=== PATIENT | female | born 1975 | race Caucasian/White ===

== ENCOUNTER 2020-05-19 19:55 | Outpatient (REF) | payer BC, SELFPAY ==
[2020-05-19 21:30] LABS: Calculated LDL 183 mg/dL (<100); Cholesterol 259 mg/dL (<200); HDL Cholesterol 61 mg/dL (40-60); Triglyceride 78 mg/dL (<150)
[2020-05-19 21:31] LABS: Hemoglobin A1C 5.1 % (<5.7)
== END 2020-05-19 20:15 ==
LOC: NCHCN 19:55
PROVIDERS: PCP Nurse Practitioner Family; Visit Provider Nurse Practitioner Family
DX: Z00.00 Encounter for general adult medical examination without abnormal findings (principal); E66.9 Obesity, unspecified; Z13.220 Encounter for screening for lipoid disorders; Z13.1 Encounter for screening for diabetes mellitus
CPT/HCPCS: 80061; 83036

== ENCOUNTER 2021-09-07 11:40 | Outpatient (REF) | payer BC, SELFPAY ==
--- NOTE | 2021-09-07 11:00 | PAPFT_PTH ---
PATIENT: Maryellen Perkins LOC: [facility] U#:[id number] AGE/SX: 45/F ROOM: RE09/07/[address]: Agustina Manuel : 1975 BED: DIS: 09/08/2021 SPEC #: [id number] RECD: 09/08/21 12:55 STATUS: KOJO RESandip #: [id number] TONY: 09/07/21 11:[address]: Agustina Manuel DEPT: [facility] Cytology RECD BY: Aleena Tompkins ENTERED: 09/08/21 12:56 SP TYPE: PAPFT OTHR DR: Cathleen Mares Tissues: 1 - CX/ENDOCX FOR PAP SMEARS Procedures: PAP THIN PREP/[facility] Screening HPV DNA PROBE Comments: [id number]
== END 2021-09-08 11:36 | disposition home or self-care (01) ==
LOC: LBN 11:40
PROVIDERS: PCP Nurse Practitioner Family; Visit Provider Family Medicine
DX: Z12.4 Encounter for screening for malignant neoplasm of cervix (principal); Z11.51 Encounter for screening for human papillomavirus (HPV)
CPT/HCPCS: 88142; 87624

== ENCOUNTER 2021-10-09 16:26 | Outpatient (REF) | payer BC, SELFPAY ==
[2021-10-09 21:39] LABS: HCT 39.1 % (36.0-46.0); HGB 12.5 g/dL (11.2-15.7); MCH 28.7 pg (27.0-33.0); MCV 89.7 fL (80-95); MPV 10.2 fL (8.0-11.0); Platelet Count 269 10^3/uL (130-400); RBC 4.36 10^6/uL (3.93-5.22); RDW-SD 43.3 fL; WBC 4.75 10^3/uL (4.4-10.8)
[2021-10-09 21:54] LABS: ALT 14 U/L (14-59); AST 16 U/L (15-37); Albumin 3.5 g/dL (3.4-5.0); Alkaline Phosphatase 84 U/L (46-116); Anion Gap 8.6 mmol/L (3-11); BUN 15 mg/dL (7-18); Bilirubin, Total 0.7 mg/dL (0.2-1.0); CO2 27.4 mmol/L (21.0-32.0); CREATININE 0.8 mg/dL (0.55-1.02); Calcium 8.3 mg/dL (8.5-10.1); Calculated LDL 158 mg/dL (<100); Chloride 103 mmol/L (98-107); Cholesterol 232 mg/dL (<200); Glucose 70 mg/dL (74-106); HDL Cholesterol 58 mg/dL (40-60); Potassium 3.8 mmol/L (3.5-5.1); Sodium 139 mmol/L (136-145); Triglyceride 84 mg/dL (<150)
[2021-10-09 21:57] LABS: Hemoglobin A1C 5.2 % (<5.7)
== END 2021-10-09 16:27 | disposition home or self-care (01) ==
LOC: NCHCN 16:26
PROVIDERS: PCP Nurse Practitioner Family; Visit Provider Nurse Practitioner Family
DX: Z00.00 Encounter for general adult medical examination without abnormal findings (principal); E78.5 Hyperlipidemia, unspecified; Z13.1 Encounter for screening for diabetes mellitus
CPT/HCPCS: 80053; 80061; 85027; 83036

== ENCOUNTER 2022-01-07 21:29 | Outpatient (REF) | payer BC, SELFPAY ==
[2022-01-09 14:43] LABS: HSV 1 DNA Result Positive (Negative); HSV 2 DNA Result Negative (Negative); Varicella Zoster DNA Result Negative ((See Note))
== END 2022-01-07 21:30 | disposition home or self-care (01) ==
LOC: NCHCN 21:29
PROVIDERS: PCP Nurse Practitioner Family; Visit Provider Internal Medicine
DX: R23.8 Other skin changes (principal); H02.89 Other specified disorders of eyelid
CPT/HCPCS: 87529; 87798

== ENCOUNTER 2024-12-05 09:58 | Outpatient (REF) | payer BC, SELFPAY ==
[2024-12-05 15:55] LABS: HCT 38.9 % (36.0-46.0); HGB 12.8 g/dL (11.2-15.7); MCH 29.2 pg (27.0-33.0); MCHC 32.9 % (32.0-36.0); MCV 89 fL (80-95); MPV 10.1 fL (8.0-11.0); Platelet Count 297 10^3/uL (130-400); RBC 4.38 10^6/uL (3.93-5.22); RDW 14.7 % (11.7-14.6); RDW-SD 46.5 fL; WBC 4.95 10^3/uL (4.4-10.8)
[2024-12-05 16:29] LABS: ALT 23 U/L (14-59); AST 23 U/L (15-37); Albumin 3.6 g/dL (3.4-5.0); Alkaline Phosphatase 88 U/L (46-116); BUN 14 mg/dL (7-18); Bilirubin, Total 0.8 mg/dL (0.2-1.0); CREATININE 0.8 mg/dL (0.55-1.02); Calcium 9.1 mg/dL (8.5-10.1); Calculated LDL 181 mg/dL (<100); Chloride 104 mmol/L (98-107); Cholesterol 262 mg/dL (<200); Estimated GFR 89.71 (mL/min/1.73m2); Glucose 91 mg/dL (74-106); HDL Cholesterol 64 mg/dL (>or=50); Sodium 140 mmol/L (136-145); TSH 4.53 uIU/mL (0.36-3.74); Total Protein 7.3 g/dL (6.4-8.2); Triglyceride 89 mg/dL (<150)
[2024-12-05 17:00] LABS: Hemoglobin A1C 5.5 % (<5.7)
== END 2024-12-05 09:59 | disposition home or self-care (01) ==
LOC: NCHCN 09:58
PROVIDERS: PCP Nurse Practitioner Family; Visit Provider Nurse Practitioner Family
DX: Z00.00 Encounter for general adult medical examination without abnormal findings (principal)
CPT/HCPCS: 80053; 80061; 85027; 83036; 84443

== ENCOUNTER 2025-03-04 09:25 | Outpatient (REF) | payer BC, SELFPAY ==
[2025-03-04 15:34] LABS: Calculated LDL 174 mg/dL (<100); Cholesterol 248 mg/dL (<200); HDL Cholesterol 62 mg/dL (>or=50); TSH 3.84 uIU/mL (0.36-3.74); Triglyceride 60 mg/dL (<150)
[2025-03-04 17:36] LABS: FREE T4 0.75 ng/dL (0.76-1.46)
[2025-03-04 23:01] LABS: Thyroglobulin Antibody 18 U/mL (<=60); Thyroperoxidase Antibody <28 U/mL (<=60)
== END 2025-03-04 09:26 | disposition home or self-care (01) ==
LOC: NCHCN 09:25
PROVIDERS: PCP Nurse Practitioner Family; Visit Provider Nurse Practitioner Family
DX: E78.5 Hyperlipidemia, unspecified (principal); E03.9 Hypothyroidism, unspecified
CPT/HCPCS: 80061; 86376; 84439; 84443

== ENCOUNTER 2025-07-08 14:21 | Outpatient (REF) | payer BC, SELFPAY ==
[2025-07-08 21:18] LABS: TSH (W/Ref FT4) 2.07 uIU/mL (0.36-3.74)
== END 2025-07-08 14:22 | disposition home or self-care (01) ==
LOC: NCHCN 14:21
PROVIDERS: PCP Nurse Practitioner Family; Visit Provider Nurse Practitioner Family
DX: E03.9 Hypothyroidism, unspecified (principal)
CPT/HCPCS: 84443